=== PATIENT | male | born 1990 | race Caucasian/White ===

== ENCOUNTER 2018-07-10 17:56 | Emergency (ER) | payer BC, SELFPAY ==
[2018-07-10 18:07] VITALS: BP 122/62; PULSE 80; RESP 20; TEMP 36.6; O2SAT 100; BMI 21.9
[2018-07-10 18:35] VITALS: BP 136/74; PULSE 107; RESP 20; TEMP 37.5; O2SAT 98; BMI 21.9
--- NOTE | 2018-07-10 18:41 | CT_ITS ---
CT head/brain wo con COMPARISON: None HISTORY: Syncopal episode, headaches for a few days TECHNIQUE: Multiple axial scans obtained from the base skull to the vertex and were performed without IV contrast. FINDINGS: The base of skull is normal, mastoids are clear. There is fluid and mucoperiosteal thickening in the sphenoid sinus and mild inflammatory changes are seen in the ethmoid sinuses. The visualized portions of the maxillary sinuses are clear. The ventricular system is normal. There is a cystic lesion measuring 2.0 cm x 1.5 cm chest to the right of the ambient cistern. This is somewhat unusual location for arachnoid cyst but this is a possibility. There is no bleed and an no ischemic infarct and there are no extra-axial fluid collections. The bony calvarium appears intact. IMPRESSION: Cystic lesion at the base of the brain with MVA and cistern possibly representing an arachnoid cyst however consider follow-up nonemergent MRI scan of the brain for better evaluation., I agree the [facility] report
[2018-07-10 19:01] LABS: Basophils % 0.1 % (0.1-2.0); Eosinophils % 0.1 % (0.1-12.0); Hematocrit 46.6 % (42.0-52.0); Hemoglobin 15.5 g/dL (14.1-18.0); Lymphocytes # 0.8 K/mm3 (0.7-4.5); Mean Corpuscular HGB Conc 33.3 g/dL (31.8-35.4); Mean Corpuscular Hemoglobin 30.9 pg (27.0-31.2); Mean Corpuscular Volume 92.8 fl (80-94); Mean Platelet Volume 6.8 fl (7.4-10.4); Monocytes # 1.3 K/mm3 (0.1-1.0); Monocytes % 5.1 % (1.7-9.3); Neutrophils # 23.9 K/mm3 (1.8-7.8); Neutrophils % 91.6 % (37.0-80.0); Platelet Count 274 K/mm3 (142-424); Red Blood Count 5.03 M/mm3 (4.60-6.20); Red Cell Distribution Width 12.4 % (11.5-17.5); White Blood Count 26.1 K/mm3 (4.8-10.8)
[2018-07-10 19:05] LABS: MANUAL DIFFERENTIAL MANUAL DIFFERENTIAL (MANUAL DIFF)
[2018-07-10 19:46] LABS: Anisocytosis 1+; Lymphocytes % 3 % (10-50); Monocytes % 4 % (2-9); Neutrophils % 93 % (42-76); Platelet Estimate Normal; Stomatocytes 1+; Total Cells Counted 100
[2018-07-10 19:48] LABS: Alanine Aminotransferase 28 U/L (12-78); Albumin Level 3.9 gm/dL (3.4-5.0); Albumin/Globulin Ratio 1.2 (1.1-1.8); Alkaline Phosphatase 75 U/L (46-116); Anion Gap 13.3 mEq/L (5-15); Aspartate Amino Transferase 16 U/L (15-37); Bilirubin,Total 0.9 mg/dL (0.2-1.0); Blood Urea Nitrogen 9 mg/dL (7-18); Calcium 8.6 mg/dL (8.5-10.1); Carbon Dioxide 28 mmol/L (21.0-32.0); Chloride 101 mmol/L (98-107); Creatinine Clearance Estimated 83 mL/min (50-200); Creatinine,Serum 1.15 mg/dL (0.70-1.30); Estimated Glomerular Filt Rate 75 ml/min (>60); GFR (African American) 91 ML/MIN (>60); Globulin 3.3 gm/dl (1.3-3.2); Glucose 111 mg/dL (74-106); Potassium 3.3 mmoL/L (3.5-5.1); Sodium 139 mmol/L (136-145); Total Protein,Serum 7.2 gm/dL (6.4-8.2)
--- NOTE | 2018-07-10 20:16 | HMH.EDHA ---
ED Disposition Clinical Impression: Sinusitis Qualifiers: Sinusitis location: sphenoidal Chronicity: unspecified Qualified Code(s): J32.3 - Chronic sphenoidal sinusitis Headache Qualifiers: Headache type: unspecified Headache chronicity pattern: acute headache Intractability: not intractable Qualified Code(s): R51 - Headache Leukocytosis Qualifiers: Leukocytosis type: bandemia Qualified Code(s): D72.825 - Bandemia Disposition: Home, Self-Care Condition on Discharge: Good Instructions: DI for Sinusitis Additional Instructions: see ent and also pcp for follow up - Prescriptions: Cefdinir [Omnicef 300mg Capsule] 300 mg PO BID #20 cap Referrals: Kaylee Mcneill [Primary Care Provider] - - Critical Care Critical Care Time: No Attestation: On 07/10/18, the high probability of a clinically significant, sudden or life threatening deterioration of the following system(s) required my full and direct attention, intervention and personal management. The time I documented below is in addition to time spent performing reported procedures but includes the following listed in this critical care notation. Medical Decision Making - Medical Records Medical records reviewed: Yes: I reviewed the patient's medical records. - Dani Inquiry Pt receiving controlled substance: No Vital Signs: 07/10/18 18:07 07/10/18 18:35 Temperature 98 F 99.5 F Temperature Source Oral Oral Pulse Rate [Left Apical] 80 107 H Respiratory Rate 20 20 Blood Pressure [Right Arm] 122/62 136/74 Blood Pressure Mean [Right Arm] 82 94 Blood Pressure Source [Right Arm] Automatic Cuff Blood Pressure Position [Right Arm] Sitting 02 Sat by Pulse Oximetry 100 98 Oxygen Delivery Method Room Air - Lab Data Lab results reviewed: Yes: I reviewed the patient's lab results. Lab Results 07/10/18 18:30: WBC 26.1 H*, RBC 5.03, Hgb 15.5, Hct 46.6, MCV 92.8, MCH 30.9, MCHC 33.3, RDW 12.4, Plt Count 274, MPV 6.8 L, Neut % (Auto) 91.6 H, Lymph % (Auto) 3.0 L, Aurora % (Auto) 5.1, Eos % (Auto) 0.1, Baso % (Auto) 0.1, Neut # (Auto) 23.9 H, Lymph # (Auto) 0.8, Aurora # (Auto) 1.3 H, Eos # (Auto) 0.0, Baso # (Auto) 0.0, Total Counted 100, Neutrophils % (Manual) 93 H, Lymphocytes % (Manual) 3 L, Monocytes % (Manual) 4, Platelet Estimate Normal, Anisocytosis 1+, Stomatocytes 1+ 07/10/18 18:30: Sodium 139, Potassium 3.3 L, Chloride 101, Carbon Dioxide 28, Anion Gap 13.3, BUN 9, Creatinine 1.15, Estimated Creat Clear 83, Estimated GFR 75, Est GFR ( Amer) 91, Glucose 111 H, Calcium 8.6, Total Bilirubin 0.9, AST 16, ALT 28, Alkaline Phosphatase 75, Total Protein 7.2, Albumin 3.9, Globulin 3.3 H, Albumin/Globulin Ratio 1.2 Result diagrams: 07/10/18 18:30 07/10/18 18:30 Orders (Tests/Meds): ED MEDICATIONS Generic Name Dose Route Start Last Admin Trade Name Freq PRN Reason Stop Dose Admin Sodium Chloride 1,000 mls @ 999 mls/hr 07/10/18 18:45 07/10/18 18:58 Sod Chlor 0.9% 1000ml Bag IV 07/10/18 19:45 999 mls/hr .Q1H1M ALMITA Administration Ceftriaxone Sodium 1 gm/ 50 mls @ 100 mls/hr 07/10/18 20:30 07/10/18 20:33 Sodium Chloride IV 07/24/18 20:29 100 mls/hr Q24H ALMITA Administration Protocol Discontinued Medications Generic Name Dose Route Start Last Admin Trade Name Freq PRN Reason Stop Dose Admin Acetaminophen/Codeine Phosphate 1 joe 07/10/18 21:01 Acetaminophen W/Codeine #3 Take Home Pack (6) PO 07/10/18 21:02 ONCE ONE Diphenhydramine HCl 50 mg 07/10/18 18:41 07/10/18 18:57 Benadryl 50mg/1ml Vial IV 07/10/18 18:42 50 mg ONCE ONE Administration Ketorolac Tromethamine 30 mg 07/10/18 18:41 07/10/18 18:57 Toradol 30mg/Ml Vial IV 07/10/18 18:42 30 mg ONCE ONE Administration Methylprednisolone Sodium Succinate 125 mg 07/10/18 18:41 07/10/18 18:57 Solu-Medrol 125mg/2ml Vial IV 07/10/18 18:42 125 mg ONCE ONE Administration Metoclopramide HCl 5 mg 07/10/18 18:41 07/10/18 18:57 Seda
[2018-07-10 21:23] VITALS: BP 129/69; PULSE 100; RESP 20; TEMP 36.8; O2SAT 97
[2018-07-10 21:47] LABS: Erythrocyte Sedimentation Rate 5 mm/hr (0-15)
[2018-07-12 21:03] LABS: Peripheral Smear Review Scanned Result
== END 2018-07-10 21:24 | disposition home or self-care (01) ==
LOC: UTC 18:08 → ER 18:26
PROVIDERS: Emergency Medicine; Emergency Provider Emergency Medicine; PCP Physician Assistant
DX: J32.3 Chronic sphenoidal sinusitis (principal); R51 Headache; D72.825 Bandemia; Z88.2 Allergy status to sulfonamides; F17.210 Nicotine dependence, cigarettes, uncomplicated
CPT/HCPCS: 70450; 80053; 85007; 85025; 85651; 93005; 96365; 96367; 96375; 99283

== ENCOUNTER 2020-04-15 19:28 | Emergency (ER) | payer BC, SELFPAY ==
[2020-04-15 19:45] VITALS: BP 154/91; PULSE 93; RESP 17; TEMP 37; O2SAT 99; BMI 20.3
--- NOTE | 2020-04-15 20:04 | HMH.EDUTC ---
[facility] – [place] Disposition Clinical Impression: Viral syndrome Disposition: Home, Self-Care Condition on Discharge: Good Instructions: DI for Viral Syndrome, DI for COVID-19 (Suspected or Confirmed ), Coronavirus Disease 2019, Preventing the Spread of Coronavirus Discharge Instructions, Influenza Additional Instructions: ? Lots of rest ? Increase Fluids water, Gatorade, powerade, pedialyte,if /toddler/child ? Alternate Tylenol and / or ibuprofen as discussed for fever, aches, chills Follow up IMMEDIATELY with your family doctor for new or worsening Symptoms OR no noticeable improvement over the next 48-72 hours, 911 for difficulty or breathing ? You or your child area contagious until no fever, aches, chills for 24 hours with medication for symptoms ? Help Prevent the spread of influenza: ? Wash your hands often. Use soap and water. Wash your hands after you use the bathroom, change a child's diapers, or sneeze. Wash your hands before you prepare or eat food. Use gel hand cleanser that has 60% alcohol, when soap and water are not available. Do not touch your eyes, nose, or mouth unless you have washed your hands first. ? Cover your mouth when you sneeze or cough. Cough into a tissue or the bend of your arm. If you use a tissue, throw it away immediately and wash your hands. ? Clean shared items with a germ-killing shoe cleaner. Clean table surfaces, doorknobs, and light switches. Do not share towels, silverware, and dishes with people who are sick. Wash bed sheets, towels, silverware, and dishes with soap and water. ? Wear a mask over your mouth and nose if you are sick. The face mask may help protect others from becoming infected with the flu. Wear the mask when in common areas of your home or if you seek care with a healthcare provider. ? Stay away from others if you are sick. Stay at home until 24 hours after your fever and symptoms are gone. *Monitor Temp, Over the counter Motrin or Tylenol as directed/as needed Tylenol every 4 hours and Motrin every 6 hours (as long as your family doctor has told you that you can take it) for fever or pain. and straight to ER if unable to lower temp less than 101.0 after medication given *Warm salt water gargles may help to soothe the throat *Throat Lozenges *Warm fluids like tea with honey may help to soothe the throat *Sleep elevated *Humidifier/Vaporizer Follow up IMMEDIATELY for new or worsening symptoms or no Noticeable improvement over the next 48-72 hours. 911 for difficulty breathing or swallowing May need to get retested for COVID in 3-5 days if having symptoms Return if needed Straight to ER if any life threatening symptoms Make sure to Quarantine if you are having COVID symptoms as advised in the [facility] Referrals: Kaylee Mcneill [Primary Care Provider] - As needed Forms: Work/School Release Time of Disposition: 20:28 Medical Decision Making - Dani Inquiry Pt receiving controlled substance: No Dani was queried for this patient: No Vital Signs: 04/15/20 19:45 Temperature 98.6 F Temperature Source Oral Pulse Rate [Right] 93 H Respiratory Rate 17 Blood Pressure [Right Arm] 154/91 H Blood Pressure Mean [Right Arm] 112 Blood Pressure Source [Right Arm] Automatic Cuff Blood Pressure Position [Right Arm] Sitting 02 Sat by Pulse Oximetry 99 Oxygen Delivery Method Room Air Medical Decision Narrative: Discussed with patient that COVID test results just came back today and was negative and he recently was dx with flu and today loss his sense of taste and smell, Advised patient that we could test him again today but still may be early or could have him quarantine and recommended retest in the nest 3-5 days or sooner if any worsening of symptoms and patient agreed. Patient educated on COVID 19 that it is a virus and at this time there is no current prevention medications except vaccine Patient verbalized understanding Patient educated to make sure that he is quarantining and needed to get retested
[2020-04-15 20:29] VITALS: BP 148/87; PULSE 90; RESP 16; TEMP 36.6
== END 2020-04-15 20:32 | disposition home or self-care (01) ==
PROVIDERS: Emergency Provider Nurse Practitioner; PCP Physician Assistant
DX: J10.1 Influenza due to other identified influenza virus with other respiratory manifestations (principal); F17.210 Nicotine dependence, cigarettes, uncomplicated; Z88.2 Allergy status to sulfonamides
CPT/HCPCS: 99202; G0463

== ENCOUNTER → 2020-11-04 17:17 | Outpatient (CLI) | payer BC, SELFPAY | PROVIDERS: PCP Family Medicine; Visit Provider Nurse Practitioner | DX: Z20.822 Contact with and (suspected) exposure to COVID-19 (principal); U07.1 COVID-19 | CPT/HCPCS: C9803; U0003; U0005 ==

== ENCOUNTER 2020-11-07 00:19 | Emergency (ER) | payer BC, SELFPAY ==
[2020-11-07] VITALS (8 sets, daily range): BP systolic 108–131; BP diastolic 58–90; PULSE 62–95; RESP 16–18; TEMP 36.8; O2SAT 97–100; BMI 22.6
--- NOTE | 2020-11-07 00:28 | CT_ITS ---
PROCEDURE INFORMATION: Exam: CT Abdomen And Pelvis With Contrast Exam date and time: 11/07/2020 12:28 AM Age: 30 years old Clinical indication: Nausea and vomiting; Abdominal pain; Generalized; Patient HX: N/v/d TECHNIQUE: Imaging protocol: Computed tomography of the abdomen and pelvis with contrast. Radiation optimization: All CT scans at this facility use at least one of these dose optimization techniques: automated exposure control; mA and/or kV adjustment per patient size (includes targeted exams where dose is matched to clinical indication); or iterative reconstruction. Contrast material: ISOVUE; Contrast volume: 75 ml; Contrast route: IV; COMPARISON: CR PELAP PELVIS AP ONLY 04/04/2014 10:04 PM FINDINGS: Lungs: No mass/infiltrate at either lung base. No pleural effusion. Liver: The liver is normal in size and attenuation. No intrahapatic biliary dilitation. Gallbladder and bile ducts: Normal. No calcified stones. No ductal dilation. Gallbladder wall thickness is normal. Pancreas: Normal. No ductal dilation. Spleen: Normal. No splenomegaly. Adrenal glands: Normal. No mass. Kidneys and ureters: Normal. No hydronephrosis. Stomach and bowel: There is fluid and air distention of the colon. The small bowel does not appear dilated. There is prominent distention of the stomach with air, fluid, and food. No obstruction. No mucosal thickening. Small bowel mesentery is normal. Appendix: Unremarkable. Intraperitoneal space: Unremarkable. No free air. No significant fluid collection. Vasculature: Unremarkable. No abdominal aortic aneurysm. Lymph nodes: Unremarkable. No enlarged lymph nodes. Urinary bladder: Unremarkable as visualized. Reproductive: Unremarkable as visualized. Bones/joints: Unremarkable. No acute fracture. Soft tissues: Unremarkable. IMPRESSION: Non-specific mild distention of the colon with fluid and air. No evidence of intestinal obstruction. There is no evidence of mass within the abdomen or pelvis.
--- NOTE | 2020-11-07 00:53 | HMH.EDNVD ---
ED Disposition Clinical Impression: COVID-19, Enteritis Disposition: Home, Self-Care Condition on Discharge: Good Instructions: DI for Diarrhea and Traveler's Diarrhea -- Adult, DI for COVID-19 (Suspected or Confirmed ) Additional Instructions: fluids and see pcp for follow up and stool results Referrals: Kiel Lundberg MD [Primary Care Provider] - - Critical Care Critical Care Time: No Attestation: On 11/07/20, the high probability of a clinically significant, sudden or life threatening deterioration of the following system(s) required my full and direct attention, intervention and personal management. The time I documented below is in addition to time spent performing reported procedures but includes the following listed in this critical care notation. Medical Decision Making - Medical Records Medical records reviewed: Yes: I reviewed the patient's medical records. - Dani Inquiry Pt receiving controlled substance: No Vital Signs: 11/07/20 00:21 11/07/20 00:30 11/07/20 01:00 Temperature 98.3 F Temperature Source Oral Pulse Rate 89 72 Pulse Rate [Right Brachial] 95 H Respiratory Rate 18 17 Blood Pressure 131/90 126/83 Blood Pressure [Right Arm] 130/89 Blood Pressure Mean 101 Blood Pressure Mean [Right Arm] 102 Blood Pressure Source [Right Arm] Automatic Cuff Blood Pressure Position [Right Arm] Sitting 02 Sat by Pulse Oximetry 97 98 99 Oxygen Delivery Method Room Air Room Air 11/07/20 02:00 11/07/20 03:00 11/07/20 03:43 Temperature Temperature Source Pulse Rate 76 74 81 Pulse Rate [Right Brachial] Respiratory Rate Blood Pressure 108/60 L 113/58 L 108/58 L Blood Pressure [Right Arm] Blood Pressure Mean Blood Pressure Mean [Right Arm] Blood Pressure Source [Right Arm] Blood Pressure Position [Right Arm] 02 Sat by Pulse Oximetry 99 100 98 Oxygen Delivery Method 11/07/20 04:00 Temperature Temperature Source Pulse Rate 62 Pulse Rate [Right Brachial] Respiratory Rate Blood Pressure 110/60 Blood Pressure [Right Arm] Blood Pressure Mean Blood Pressure Mean [Right Arm] Blood Pressure Source [Right Arm] Blood Pressure Position [Right Arm] 02 Sat by Pulse Oximetry 99 Oxygen Delivery Method - Lab Data Lab results reviewed: Yes: I reviewed the patient's lab results. Lab Results 11/07/20 00:45: WBC 12.8 H, RBC 5.46, Hgb 17.3, Hct 55.2 H, MCV 101.1 H, MCH 31.6 H, MCHC 31.3 L, RDW 12.8, Plt Count 323, MPV 8.4, Neut % (Auto) 86.2 H, Lymph % (Auto) 8.6 L, Cobb % (Auto) 4.1, Eos % (Auto) 0.5, Baso % (Auto) 0.6, Neut # (Auto) 11.1 H, Lymph # (Auto) 1.1, Cobb # (Auto) 0.5, Eos # (Auto) 0.1, Baso # (Auto) 0.1, Total Counted 100, Neutrophils % (Manual) 85 H, Lymphocytes % (Manual) 13, Monocytes % (Manual) 1 L, Eosinophils % (Manual) 1, Platelet Estimate Normal, Macrocytosis 1+ 11/07/20 00:45: Sodium 140, Potassium 4.1, Chloride 105, Carbon Dioxide 20 L, Anion Gap 19.1 H, BUN 16, Creatinine 1.00, Estimated Creat Clear 96, Estimated GFR 87, Est GFR ( Amer) 105, Glucose 111 H, Calcium 9.3, Total Bilirubin 0.3, AST 46, ALT 34, Alkaline Phosphatase 82, Total Protein 8.3 H, Albumin 5.0, Globulin 3.3 H, Albumin/Globulin Ratio 1.5, Amylase 62, Lipase 27 11/07/20 00:45: ESR 3 11/07/20 00:45: C-Reactive Protein 14.8 H, Procalcitonin 0.063 Result diagrams: 11/07/20 00:45 11/07/20 00:45 Orders (Tests/Meds): ED MEDICATIONS Generic Name Dose Route Start Last Admin Trade Name Freq PRN Reason Stop Dose Admin Sodium Chloride 1,000 mls @ 999 mls/hr 11/07/20 00:30 11/07/20 00:39 Sod Chlor 0.9% 1000ml Bag IV 11/07/20 01:30 999 mls/hr .Q1H1M ALMITA Administration Sodium Chloride 8 ml 11/07/20 03:45 Sodium Chloride 0.9% 10ml Vial IV 12/07/20 03:44 NEEDED PRN dilute pepcid Discontinued Medications Generic Name Dose Route Start Last Admin Trade Name Freq PRN Reason Stop Dose Admin Dexamethasone Sodium Phosphate
[2020-11-07 00:55] LABS: Basophils # 0.1 K/mm3 (0-0.2); Basophils % 0.6 % (0.1-2.0); Eosinophils # 0.1 K/mm3 (0.0-0.4); Eosinophils % 0.5 % (0.1-12.0); Hematocrit 55.2 % (42.0-52.0); Hemoglobin 17.3 g/dL (14.1-18.0); Lymphocytes # 1.1 K/mm3 (0.7-4.5); Lymphocytes % 8.6 % (10-50); Mean Corpuscular HGB Conc 31.3 g/dL (31.8-35.4); Mean Corpuscular Hemoglobin 31.6 pg (27.0-31.2); Mean Corpuscular Volume 101.1 fl (80-94); Mean Platelet Volume 8.4 fl (7.4-10.4); Monocytes # 0.5 K/mm3 (0.1-1.0); Monocytes % 4.1 % (1.7-9.3); Neutrophils # 11.1 K/mm3 (1.8-7.8); Neutrophils % 86.2 % (37.0-80.0); Platelet Count 323 K/mm3 (142-424); Red Blood Count 5.46 M/mm3 (4.60-6.20); Red Cell Distribution Width 12.8 % (11.5-17.5); White Blood Count 12.8 K/mm3 (4.8-10.8)
[2020-11-07 00:57] LABS: MANUAL DIFFERENTIAL MANUAL DIFFERENTIAL (MANUAL DIFF)
[2020-11-07 00:59] LABS: Chloride 105 mmol/L (98-107); Potassium 4.1 mmoL/L (3.5-5.1); Sodium 140 mmol/L (136-145)
[2020-11-07 01:01] LABS: Amylase 62 U/L (30-110)
[2020-11-07 01:02] LABS: Alanine Aminotransferase 34 U/L (12-78); Albumin/Globulin Ratio 1.5 (1.1-1.8); Alkaline Phosphatase 82 U/L (38-126); Anion Gap 19.1 mEq/L (5-15); Aspartate Amino Transferase 46 U/L (17-59); Bilirubin,Total 0.3 mg/dl (0.2-1.3); Blood Urea Nitrogen 16 mg/dl (9-20); Calcium 9.3 mg/dl (8.4-10.2); Carbon Dioxide 20 mmol/L (22.0-30.0); Creatinine Clearance Estimated 96 mL/min (50-200); Estimated Glomerular Filt Rate 87 ml/min (>60); GFR (African American) 105 ML/MIN (>60); Globulin 3.3 g/dL (1.3-3.2); Glucose 111 mg/dl (74-100); Lipase 27 U/L (23-300); Total Protein,Serum 8.3 g/dl (6.3-8.2)
--- NOTE | 2020-11-07 01:03 | XR_ITS ---
PROCEDURE INFORMATION: Exam: XR Chest Exam date and time: 11/07/2020 1:03 AM Age: 30 years old Clinical indication: Shortness of breath; Additional info: Covid+ TECHNIQUE: Imaging protocol: XR of the chest. Views: 2 views. COMPARISON: CR XR CHEST 2V 04/08/2019 1:51 PM FINDINGS: Lungs: Unremarkable. No consolidation. There is a 6 mm calcified granuloma within the right upper lobe. Pleural spaces: Unremarkable. No pleural effusion. No pneumothorax. Heart/Mediastinum: Unremarkable. No cardiomegaly. There is a single 4 mm calcified lymph node within the right hilus. Bones/joints: Unremarkable. IMPRESSION: Again, there is a healed primary complex identified within the right lung and right hilus as on prior examination of 04/08/2019. No evidence of acute infiltrate or congestive failure.
[2020-11-07 01:25] LABS: C-Reactive Protein 14.8 mg/L (0-4)
[2020-11-07 01:31] LABS: Erythrocyte Sedimentation Rate 3 mm/hr (0-15)
[2020-11-07 01:39] LABS: Procalcitonin 0.063 ng/mL (0.0-2.0)
[2020-11-07 01:53] LABS: Eosinophils % 1 % (0-3); Lymphocytes % 13 % (10-50); Macrocytosis 1+; Monocytes % 1 % (2-9); Neutrophils % 85 % (42-76); Platelet Estimate Normal; Total Cells Counted 100
--- NOTE | 2020-11-07 02:49 | PC.NURSE ---
pt's called and pt gave permission to give updates. updated her on POC.
--- NOTE | 2020-11-07 03:45 | PC.NURSE ---
Pt gave diarrhea sample. , ok'ed to have PO intake. Pt given rené mist
[2020-11-07 04:20] LABS: Adenovirus F 40/41, stool Not Detected (NotDetected); Astrovirus Not Detected (NotDetected); Campylobacter Not Detected (NotDetected); Clostridium Difficile A/B, PCR Not Detected (NotDetected); Cyclospora Cayetanesis Not Detected (NotDetected); Entamoeba histolytica Not Detected (NotDetected); Enteroaggregative E coli Not Detected (NotDetected); Enterotoxigenic E coli Not Detected (NotDetected); Giardia lamblia Not Detected (NotDetected); Microscopic, Urine URINE MICROSCOPIC (MICROSCOPIC); Norovirus Not Detected (NotDetected); Plesimonas Shigalloides, PCR Not Detected (NotDetected); Rotavirus A Not Detected (NotDetected); Salmonella, PCR Not Detected (NotDetected); Sapovirus Not Detected (NotDetected); Shiga-like toxin E coli Not Detected (NotDetected); Shigella Enterovasive E coli Not Detected (NotDetected); Vibrio Cholerae Not Detected (NotDetected); Vibrio, PCR Not Detected (NotDetected); Yersinia Entercolitica, PCR Not Detected (NotDetected)
[2020-11-07 04:22] LABS: Appearance,Urine CLEAR (Clear); Bilirubin,Urine Negative (Negative); Blood, Urine Negative (Negative); Color,Urine YELLOW (Yellow); Glucose,Urine (UA) Negative (Negative); Ketones,Urine 1+ (Negative); Leukocyte Esterase,Urine Negative (Negative); Nitrate,Urine Negative (Negative); PH,Urine 5.5 (5.0-8.5); Protein,Urine Negative (Negative); Specific Gravity, Urine 1.015 (1.005-1.030); Urobilinogen,Urine 0.2 EU/dl (0.2)
[2020-11-07 04:28] LABS: WBC,Urine Occasional #/hpf (0-3)
[2020-11-07 04:29] LABS: Bacteria,Urine 1+ /lpf; Mucus,Urine 1+ /lpf
[2020-11-07 07:32] LABS: Cryptosporidium Detected (NotDetected); Enteropathogenic E coli Detected (NotDetected)
--- NOTE | 2020-11-07 07:33 | PC.NURSE ---
lab called with diarrhea panel results at this time spoke with Joana, states pt is positive enteropathogenic ecoli and crypto. Notified Dr. Burch of results-he is who seen pt in ER.
== END 2020-11-07 04:42 | disposition home or self-care (01) ==
PROVIDERS: Emergency Provider Emergency Medicine; PCP Family Medicine
DX: U07.1 COVID-19 (principal); K52.9 Noninfective gastroenteritis and colitis, unspecified; F17.210 Nicotine dependence, cigarettes, uncomplicated
CPT/HCPCS: 71046; 74177; 80053; 81001; 82150; 83690; 84145; 85007; 85025; 85651; 86140; 87507; 96365; 96375; 99283; J2405; Q9967

== ENCOUNTER 2023-03-27 10:20 | Emergency (ER) | payer SELFPAY ==
[2023-03-27 11:30] VITALS: BP 120/80; PULSE 93; RESP 18; TEMP 37.4; O2SAT 100; BMI 21.9
--- NOTE | 2023-03-27 11:50 | EXP.UTC ---
Discharge Plan Disposition Patient Disposition: Home, Self-Care Condition: Good Prescriptions Prescriptions: New azithromycin [Zithromax] 250 mg tablet 250 mg PO UD DOSE PK Qty: 6 0RF Rx Instructions: Take two (2) tablets today, then one (1) tablet days #2 thru #5 methylprednisolone 4 mg Tablets,Dose Pack 4 mg PO DIRECTED 6 Days Qty: 21 0RF Rx Instructions: Take 1 pack as directed for 6 days No Action Men's Multivitamin Gummies 200 mcg tablet,chewable PO Referrals Follow up/Referrals: Genevieve Pierce [Primary Care Provider] - See instructions Activity Restrictions/Add. Instructions Additional Instructions/Restrictions: Drink plenty of fluids. Make sure you start drinking. Water or an electrolyte fluid like gatorade or pedialyte would be best. Take tylenol for pain or fever. Take the medications as directed. Follow up with your regular doctor. GO TO THE ER FOR ANY WORSENING SYMPTOMS Clinical Impressions Clinical Impression: Influenza Instructions Patient Instructions: DI for Influenza -- Adult, Methylprednisolone, Azithromycin Discharge ED Provider: Torrey Vigil [facility] General Stated complaint: lower back pain strong urine ba Mode of Arrival: Ambulatory Source of Information: Patient Limitations: No Limitations Time Seen by Provider: 03/27/23 11:50 Description of Symptoms (Recalled from Triage Doc. by RN): Pt's is having bilateral lower back pain, bilateral knee pain, cough, and dark urine. HEENT Symptoms (Recalled from RN notes): Yes Resp Symptoms (Recalled from RN notes): No Skin Symptoms (Recalled from RN notes): No MS Symptoms (Recalled from RN notes): No Functional Status (Recalled from RN notes): n/a History of Present Illness Provider Complaint: He states that for the past 2 days he has had sore throat, body aches, cough and malaise. He states that he has been exposed to influenza. He states that he has had decreased urine output since this morning. He states that he has not been drinking enough fluids because he has not felt like getting up and getting them to drink. Related Data Home Medications Medication Instructions Recorded Confirmed multivitamin with minerals-folic tab PO 01/19/21 01/19/21 acid 200 mcg chewable tablet (Men's Multivitamin Gummies) Previous Rx's Medication Instructions Recorded azithromycin 250 mg tablet 250 mg PO UD DOSE PK #6 tabs 03/27/23 (Zithromax) methylprednisolone 4 mg tablets in 4 mg PO DIRECTED 6 days #21 tabs 03/27/23 a dose pack Allergies Allergy/AdvReac Type Severity Reaction Status Date / Time Sulfa (Sulfonamide Allergy Verified 03/27/23 11:47 Antibiotics) Worker's Comp Is this a Worker's Comp case?: No PFSH PFS Disclaimer: The information contained in this section may have been updated after the patient was seen, as this information can be updated by other users. Medical History (Updated 03/27/23 @ 12:07 by Torrey Vigil APRN) ALISSA (obstructive sleep apnea) Snoring Syncope Witnessed apneic spells Social History Smoking Status: Current every day smoker tobacco type: cigarettes packs per day: 1 alcohol intake: never substance use type: denies use current occupational status: employed Travel in the last 8 weeks: Inside the [place] housing: house ROS Obtained: Yes All systems reviewed & no additional complaints except as documented Constitutional Constitutional: Reports poor appetite Eyes Eyes: Reports system reviewed and no additional complaints, except as documented ENT Ears, Nose, Mouth, and Throat: Reports as per HPI Cardiovascular Cardiovascular: Reports system reviewed and no additional complaints, except as documented and Denies chest pain Respiratory Respiratory: Denies shortness of breath, Denies chest congestion, Reports cough, Denies stridor and Denies wheezing Gastrointestinal Gastrointestingal: Reports system reviewed and no additional complaints, except as documented; Denies abdominal pain, diarrhea or vomiting Musculoskeletal Musculoskeletal: Reports system reviewed and no additional complaints, except as documented and Denies arthralgias Integumentary/Breasts Skin/Breast: Reports system reviewed and no additional complaints, except as documented and Denies rash Neurologic Neurologic: Denies paresthesias Allergic/Immunologic Allergic/Immunologic: Denies wheezing Physical Exam General General appearance: alert and in no apparent distress Head Head exam: atraumatic, normocephalic and normal inspection Eye Eye exam: Present normal appearance, PERRL and EOMI ENT ENT exam: Present mucous membranes moist and normal external ear exam Expanded ENT Exam TM/Canal exam: Bilateral TM: erythema and bulging Nose exam: Absent sinus tenderness Mouth exam: Present normal external inspection; Absent drooling Teeth exam: Present normal inspection Throat exam: Present tonsillar erythema, tonsillomegaly and tonsillar exudate Neck Neck exam: Present normal inspection, full ROM and trachea midline; Absent tenderness, meningismus or lymphadenopathy Chest Chest inspection: Present normal inspection and symmetric chest wall rise; Absent tenderness Respiratory Respiratory exam: Present normal lung sounds bilaterally; Absent respiratory distress, wheezes or stridor Cardiovascular Cardiovascular exam: Present regular rate and normal rhythm; Absent systolic murmur or diastolic murmur Abdominal Exam Abdominal exam: Present soft and normal bowel sounds; Absent distention, tenderness, guarding, rebound or rigidity Extremities Exam Extremities exam: Present normal inspection and normal capillary refill; Absent calf tenderness Back Exam Back exam: Present normal inspection and full ROM; Absent tenderness, CVA tenderness (R) or CVA tenderness (L) Neurological Exam Neurological exam: Present alert, oriented X3 and CN II-XII intact Psychiatric Psychiatric exam: Present normal affect and normal mood Skin Skin exam: Present warm, dry, intact and normal color Medical Decision Making Medical Records Medical records reviewed: No I reviewed the patient's medical records. Dani Inquiry Pt receiving controlled substance: No Vital Signs: 03/27/23 11:30 Temperature 99.4 F Temperature Source Oral Pulse Rate [Right Radial] 93 H Respiratory Rate 18 Blood Pressure [Right Arm] 120/80 Blood Pressure Mean [Right Arm] 93 Blood Pressure Source [Right Arm] Automatic Cuff Blood Pressure Position [Right Arm] Sitting 02 Sat by Pulse Oximetry 100 Oxygen Delivery Method Room Air Medical Decision Narrative: He refused IV bolus fluids and lab work due to his insurance not being active. He was instructed to return jorge if he does not start feeling better after drinking plenty of fluids.
[2023-03-27 12:26] VITALS: BP 120/80; PULSE 93; RESP 18; TEMP 37.4; O2SAT 100
== END 2023-03-27 12:26 | disposition home or self-care (01) ==
PROVIDERS: Emergency Provider Nurse Practitioner Family; PCP Nurse Practitioner Family
DX: J10.1 Influenza due to other identified influenza virus with other respiratory manifestations (principal); R05.9 Cough, unspecified; R07.0 Pain in throat; R53.81 Other malaise; F17.210 Nicotine dependence, cigarettes, uncomplicated
CPT/HCPCS: 99212; 99214; G0463

== ENCOUNTER 2023-04-24 10:40 | Emergency (ER) | payer OTHER, SELFPAY ==
[2023-04-24 10:42] VITALS: BP 129/76; PULSE 90; RESP 18; TEMP 36.6; O2SAT 99; BMI 19.8
--- NOTE | 2023-04-24 11:04 | ED_ITS ---
Discharge Plan Disposition Patient Disposition: Home, Self-Care Condition: Good Prescriptions Prescriptions: New prednisone 10 mg tablet 10 mg PO DIRECTED 9 Days Qty: 21 0RF Rx Instructions: Take 4 tablets daily for 3 days, then take 2 tablets daily for 3 days, then take 1 tablet daily for 3 days, then stop. benzonatate 100 mg capsule 100 mg PO TIDP PRN (Reason: Cough) Qty: 30 0RF cefdinir 300 mg capsule 300 mg PO BID Qty: 20 0RF No Action Men's Multivitamin Gummies 200 mcg tablet,chewable 1 tab PO DAILY Referrals Follow up/Referrals: Genevieve Pierce [Primary Care Provider] - See instructions Activity Restrictions/Add. Instructions Additional Instructions/Restrictions: Drink plenty of fluids. Take tylenol or ibuprofen for pain or fever. Take the medications as directed. Follow up with your regular doctor. GO TO THE ER FOR ANY WORSENING SYMPTOMS Clinical Impressions Clinical Impression: Acute bronchitis Instructions Patient Instructions: Acute Bronchitis, DI for Acute Bronchitis Discharge ED Provider: Torrey Vigil [facility] General Stated complaint: congestion cough side pain Time Seen by Provider: 04/24/23 11:04 Related Data Home Medications Medication Instructions Recorded Confirmed multivitamin with minerals-folic 1 tab PO DAILY 01/19/21 04/24/23 acid 200 mcg chewable tablet (Men's Multivitamin Gummies) Previous Rx's Medication Instructions Recorded benzonatate 100 mg capsule 100 mg PO TIDP PRN Cough #30 caps 04/24/23 cefdinir 300 mg capsule 300 mg PO BID #20 caps 04/24/23 prednisone 10 mg tablet 10 mg PO DIRECTED 9 days #21 04/24/23 tabs Allergies Allergy/AdvReac Type Severity Reaction Status Date / Time Sulfa (Sulfonamide Allergy Verified 04/24/23 11:20 Antibiotics) [facility] Disclaimer: The information contained in this section may have been updated after the p atient was seen, as this information can be updated by other users. Medical History (Updated 04/24/23 @ 12:02 by Torrey Vigil APRN) Witnessed apneic spells Snoring ALISSA (obstructive sleep apnea) Syncope Social History Smoking Status: Current every day smoker tobacco type: cigarettes packs per day: 1 alcohol intake: never substance use type: denies use current occupational status: employed Travel in the last 8 weeks: Inside the [place] housing: house ROS Obtained: Yes All systems reviewed & no additional complaints except as documented Constitutional Constitutional: Reports poor appetite Eyes Eyes: Reports system reviewed and no additional complaints, except as documented ENT Ears, Nose, Mouth, and Throat: Reports as per HPI Cardiovascular Cardiovascular: Reports system reviewed and no additional complaints, except as documented and Denies chest pain Respiratory Respiratory: Denies shortness of breath, Reports chest congestion, Reports cough, Denies stridor and Denies wheezing Gastrointestinal Gastrointestingal: Reports system reviewed and no additional complaints, except as documented; Denies abdominal pain, diarrhea or vomiting Musculoskeletal Musculoskeletal: Reports system reviewed and no additional complaints, except as documented and Denies arthralgias Integumentary/Breasts Skin/Breast: Reports system reviewed and no additional complaints, except as documented and Denies rash Neurologic Neurologic: Denies paresthesias Allergic/Immunologic Allergic/Immunologic: Denies wheezing Physical Exam General General appearance: alert and in no apparent distress Eye Eye exam: Present normal appearance, PERRL and EOMI ENT ENT exam: Present mucous membranes moist and normal external ear exam Expanded ENT Exam External ear exam: Present normal external inspection TM/Canal exam: Bilateral TM: erythema and bulging Nose exam: Absent sinus tenderness Nasal speculum exam: Bilateral: normal Mouth exam: Present normal external inspection; Absent drooling Teeth exam: Present normal inspection Throat exam: Present tonsillar erythema and tonsillomegaly Neck Neck exam: Present normal inspection, full ROM and trachea midline; Absent tenderness, lymphadenopathy or thyromegaly Chest Chest inspection: Present normal inspection and symmetric chest wall rise; Absent tenderness or rash Respiratory Respiratory exam: Present normal lung sounds bilaterally; Absent respiratory distress, wheezes, stridor or accessory muscle use Cardiovascular Cardiovascular exam: Present regular rate, normal rhythm and normal heart sounds Abdominal Exam Abdominal exam: Present soft; Absent distention, tenderness, guarding, rebound or rigidity Extremities Exam Extremities exam: Present normal inspection, full ROM and normal capillary refill; Absent tenderness or calf tenderness Back Exam Back exam: Present normal inspection and full ROM; Absent tenderness Neurological Exam Neurological exam: Present alert and oriented X3 Psychiatric Psychiatric exam: Present normal affect and normal mood Skin Skin exam: Present warm, dry, intact and normal color Lymphatic Lymphatic Findings: no adenopathy Medical Decision Making Medical Records Medical records reviewed: No I reviewed the patient's medical records. Dani Inquiry Pt receiving controlled substance: No Lab Data Lab results reviewed: Yes I reviewed the patient's lab results.
--- NOTE | 2023-04-24 11:11 | XR_ITS ---
PROCEDURE INFORMATION: Exam: XR Chest Exam date and time: 04/24/2023 11:25 AM Age: 32 years old Clinical indication: Cough TECHNIQUE: Imaging protocol: Radiologic exam of the chest. Views: 2 views. COMPARISON: CR XR CHEST 2V 11/07/2020 2:13 AM FINDINGS: Lungs: No evidence of pneumonia or interstitial edema. Right upper lobe granuloma noted. Pleural spaces: Unremarkable. No pleural effusion. No pneumothorax. Heart/Mediastinum: Unremarkable. No cardiomegaly. Bones/joints: Unremarkable. IMPRESSION: No evidence of pneumonia or interstitial edema.
[2023-04-24 12:16] LABS: Coronavirus 19, PCR Not Detected (NotDetected); Influenza A, PCR Not Detected (NotDetected); Influenza B, PCR Not Detected (NotDetected)
[2023-04-24] MEDS: DEXAMETHASONE 4MG/ML 1ML VIAL 8 MG IM (12:19)
[2023-04-24] MEDS: cefTRIAXone 1GM VIAL 1 GM IM (12:19)
[2023-04-24] MEDS: LIDOCAINE 1% 5ML PF VIAL IM (12:19)
[2023-04-24 12:36] VITALS: BP 129/76; PULSE 90; RESP 18; TEMP 36.6; O2SAT 99
== END 2023-04-24 12:36 | disposition home or self-care (01) ==
PROVIDERS: Emergency Provider Nurse Practitioner Family; PCP Nurse Practitioner Family
DX: J20.9 Acute bronchitis, unspecified (principal); R05.9 Cough, unspecified; R09.81 Nasal congestion; G47.33 Obstructive sleep apnea (adult) (pediatric); F17.210 Nicotine dependence, cigarettes, uncomplicated
CPT/HCPCS: 71046; 87636; 96372; 99212; 99214; G0463; J0696

== ENCOUNTER 2023-06-29 09:44 | Emergency (ER) | payer OTHER, SELFPAY ==
[2023-06-29 10:00] VITALS: BP 114/69; PULSE 71; RESP 20; TEMP 36.8; O2SAT 100; BMI 19.8
--- NOTE | 2023-06-29 10:17 | ED_ITS ---
Discharge Plan Disposition Patient Disposition: Home, Self-Care Condition: Good Prescriptions Prescriptions: New amoxicillin 500 mg capsule 500 mg PO BID 10 Days Qty: 20 0RF Referrals Follow up/Referrals: Genevieve Pierce [Primary Care Provider] - See instructions Activity Restrictions/Add. Instructions Additional Instructions/Restrictions: *Monitor Temp, Over the counter Motrin or Tylenol as directed/as needed Tylenol every 4 hours and Motrin every 6 hours (as long as your family doctor has told you that you can take it) for fever or pain. and straight to ER if unable to lower temp less than 101.0 after medication given *Warm salt water gargles may help to soothe the throat *Throat Lozenges? *Warm fluids like tea with honey may help to soothe the throat? *Sleep elevated *Humidifier/Vaporizer *If you did not take Penicillin shot or was unable to, start taking antibiotic immediately and make sure that you take it for the FULL length of time although you should start to feel better in 24-48 hours *change toothbrush and toothpaste 24-48 hours after starting to take antibiotics so you do not reinfect yourself Monitor Temp. Tylenol and/or Ibuprofen as needed. ER if fever is no less than 101 despite alternating Tylenol and Ibuprofen * Encourage fluids, water, Gatorade, powerade, pedialyte if infant/toddler/or child *Cold fluids, popsicles and ice cream may feel good on his throat Follow up IMMEDIATELY for new or worsening symptoms or no Noticeable improvement over the next 48-72 hours. 911 for difficulty breathing or swallowing Clinical Impressions Clinical Impression: Strep throat Instructions Patient Instructions: DI for Strep Throat, Strep Throat Discharge ED Provider: Apolonia Garnett [facility] [place] HPI General Stated complaint: sore throat runny nose Mode of Arrival: Ambulatory Source of Information: Patient Limitations: No Limitations Time Seen by Provider: 06/29/23 10:17 Description of Symptoms (Recalled from Triage Doc. by RN): PATIENT C/O SORE THROAT X 2 WEEKS HEENT Symptoms (Recalled from RN notes): Yes Resp Symptoms (Recalled from RN notes): No Skin Symptoms (Recalled from RN notes): No MS Symptoms (Recalled from RN notes): No Functional Status (Recalled from RN notes): WNL History of Present Illness Provider Complaint: Patient states that he has been having sore throat for about 2 weeks and now having fever and nasal congestion so today he came in to get checked Related Data Previous Rx's Medication Instructions Recorded amoxicillin 500 mg capsule 500 mg PO BID 10 days #20 caps 06/29/23 Allergies Allergy/AdvReac Type Severity Reaction Status Date / Time Sulfa (Sulfonamide Allergy Verified 04/24/23 11:20 Antibiotics) Worker's Comp Is this a Worker's Comp case?: No [facility] Disclaimer: The information contained in this section may have been updated after the patient was seen, as this information can be updated by other users. Medical History (Updated 06/29/23 @ 10:22 by Apolonia Garnett APRN) Witnessed apneic spells Snoring ALISSA (obstructive sleep apnea) Syncope Social History Smoking Status: Current every day smoker tobacco type: cigarettes packs per day : 1 alcohol intake: never substance use type: denies use current occupational status: employed Travel in the last 8 weeks: Inside the [place] housing: house ROS Obtained: Yes All systems reviewed & no additional complaints except as documented and Yes Systems reviewed as appropriate & no additional complaints except as documented Constitutional Constitutional: Reports system reviewed and no additional complaints, except as documented, Reports as per HPI and Reports headache(s) ENT Ears, Nose, Mouth, and Throat: Reports system reviewed and no additional complaints, except as documented, Reports as per HPI, Reports headache(s), Reports nasal discharge and Reports sore throat Cardiovascular Cardiovascular: Reports system reviewed and no additional complaints, except as documented and Reports as per HPI Respiratory Respiratory: Reports system reviewed and no additional complaints, except as documented and Reports as per HPI Gastrointestinal Gastrointestingal: Reports system reviewed and no additional complaints, except as documented and as per HPI Neurologic Neurologic: Reports headache(s) Physical Exam General General appearance: alert and in no apparent distress ENT ENT exam: Present mucous membranes moist Expanded ENT Exam Throat exam: Present tonsillar erythema Respiratory Respiratory exam: Present normal lung sounds bilaterally; Absent respiratory distress or wheezes Cardiovascular Cardiovascular exam: Present regular rate, normal rhythm and normal heart sounds Neurological Exam Neurological exam: Present alert, oriented X3 and normal gait Medical Decision Making Dani Inquiry Pt receiving controlled substance: No Dani was queried for this patient: No Vital Signs: 06/29/23 10:00 Temperature 98.3 F Temperature Source Oral Pulse Rate [Left Brachial] 71 Respiratory Rate 20 Blood Pressure [Left Arm] 114/69 Blood Pressure Mean [Left Arm] 84 Blood Pressure Source [Left Arm] Automatic Cuff Blood Pressure Position [Left Arm] Sitting 02 Sat by Pulse Oximetry 100 Oxygen Delivery Method Room Air Lab Data Lab results reviewed: Yes I reviewed the patient's lab results.
[2023-06-29 10:19] LABS: UTC Strep Screen (Rapid) Positive (Negative)
[2023-06-29 10:47] VITALS: BP 114/69; PULSE 71; RESP 20; TEMP 36.8; O2SAT 100
== END 2023-06-29 10:50 | disposition home or self-care (01) ==
PROVIDERS: Emergency Provider Nurse Practitioner; PCP Nurse Practitioner Family
DX: J02.0 Streptococcal pharyngitis (principal); R07.0 Pain in throat; R50.9 Fever, unspecified; R09.81 Nasal congestion; F17.210 Nicotine dependence, cigarettes, uncomplicated
CPT/HCPCS: 87880; 99212; 99214; G0463

== ENCOUNTER 2024-01-04 16:10 | Emergency (ER) | payer OTHER, SELFPAY ==
[2024-01-04 16:20] VITALS: BP 112/64; PULSE 70; RESP 21; TEMP 36.7; O2SAT 99; BMI 22.5
--- NOTE | 2024-01-04 16:26 | XR_ITS ---
PROCEDURE INFORMATION: Exam: XR Chest Exam date and time: 01/04/2024 4:41 PM Age: 33 years old Clinical indication: Shortness of breath; Additional info: SOA TECHNIQUE: Imaging protocol: Radiologic exam of the chest. Views: 2 views. COMPARISON: CR XR CHEST 2V 04/24/2023 11:25 AM FINDINGS: Lungs: Unremarkable. No consolidation. Pleural spaces: Unremarkable. No pleural effusion. No pneumothorax. Heart/Mediastinum: Unremarkable. No cardiomegaly. Bones/joints: Unremarkable. IMPRESSION: No acute findings.
--- NOTE | 2024-01-04 16:30 | ED_ITS ---
Discharge Plan Disposition Patient Disposition: Home, Self-Care Condition: Good Prescriptions Prescriptions: New famotidine 40 mg tablet 40 mg PO HS 30 Days Qty: 30 2RF azithromycin [Zithromax] 250 mg tablet 250 mg PO UD DOSE PK Qty: 6 0RF Rx Instructions: Take two (2) tablets today, then one (1) tablet days #2 thru #5 Referrals Follow up/Referrals: Genevieve Pierce [Primary Care Provider] - See instructions Activity Restrictions/Add. Instructions Additional Instructions/Restrictions: Drink plenty of fluids. Take the medications as directed. Follow up with your regular doctor. GO TO THE ER FOR ANY WORSENING SYMPTOMS Clinical Impressions Clinical Impression: Bronchitis, Acid reflux Instructions Patient Instructions: DI for Gastroesophageal Reflux Disease (GERD), DI for Acute Bronchitis, Famotidine Print Language Print Language: Yoruba Discharge ED Provider: Torrey Vigil [facility] General Stated complaint: SOA,acid reflex occuring , chest discomfort in deonte Time Seen by Provider: 01/04/24 16:30 Related Data Previous Rx's ?Medication ?Instructions ?Recorded azithromycin 250 mg tablet 250 mg PO UD DOSE PK #6 tabs 01/04/24 (Zithromax) famotidine 40 mg tablet 40 mg PO HS 30 days #30 tabs 01/04/24 Allergies Allergy/AdvReac Type Severity Reaction Status Date / Time amoxicillin Allergy Unknown Verified 01/04/24 16:32 allergy reaction Sulfa (Sulfonamide Allergy Unknown Verified 01/04/24 16:32 Antibiotics) allergy reaction [facility] Disclaimer: The information contained in this section may have been updated after the patient was seen, as this information can be updated by other users. Medical History (Updated 01/04/24 @ 17:40 by Torrey Vigil APRN) Witnessed apneic spells Snoring ALISSA (obstructive sleep apnea) Syncope Social History Smoking Status: Current every day smoker tobacco type: cigarettes packs per day: 1 alcohol intake: never substance use type: denies use current occupational status: employed housing: house ROS Obtained: Yes All systems reviewed & no additional complaints except as documented Constitutional Constitutional: Reports poor appetite Eyes Eyes: Reports system reviewed and no additional complaints, except as documented ENT Ears, Nose, Mouth, and Throat: Reports as per HPI Cardiovascular Cardiovascular: Reports system reviewed and no additional complaints, except as documented and Denies chest pain Respiratory Respiratory: Denies shortness of breath, Reports chest congestion, Reports cough, Denies stridor and Denies wheezing Gastrointestinal Gastrointestingal: Reports system reviewed and no additional complaints, except as documented; Denies abdominal pain, diarrhea or vomiting Musculoskeletal Musculoskeletal: Reports system reviewed and no additional complaints, except as documented and Denies arthralgias Integumentary/Breasts Skin/Breast: Reports system reviewed and no additional complaints, except as documented and Denies rash Neurologic Neurologic: Denies paresthesias Allergic/Immunologic Allergic/Immunologic: Denies wheezing Physical Exam General General appearance: alert and in no apparent distress Eye Eye exam: Present normal appearance, PERRL and EOMI ENT ENT exam: Present mucous membranes moist and normal external ear exam Expanded ENT Exam External ear exam: Present normal external inspection TM/Canal exam: Bilateral TM: erythema and bulging Nose exam: Absent sinus tenderness Nasal speculum exam: Bilateral: normal Mouth exam: Present normal external inspection; Absent drooling Teeth exam: Present normal inspection Throat exam: Present tonsillar erythema and tonsillomegaly Neck Neck exam: Present normal inspection, full ROM and trachea midline; Absent tenderness, lymphadenopathy or thyromegaly Chest Chest inspection: Present normal inspection and symmetric chest wall rise; Absent tenderness or rash Respiratory Respiratory exam: Present normal lung sounds bilaterally; Absent respiratory distress, wheezes, stridor or accessory muscle use Cardiovascular Cardiovascular exam: Present regular rate, normal rhythm and normal heart sounds Abdominal Exam Abdominal exam: Present soft; Absent distention, tenderness, guarding, rebound or rigidity Extremities Exam Extremities exam: Present normal inspection, full ROM and normal capillary refill; Absent tenderness or calf tenderness Back Exam Back exam: Present normal inspection and full ROM; Absent tenderness Neurological Exam Neurological exam: Present alert and oriented X3 Psychiatric Psychiatric exam: Present normal affect and normal mood Skin Skin exam: Present warm, dry, intact and normal color Lymphatic Lymphatic Findings: no adenopathy Medical Decision Making Medical Records Medical records reviewed: No I reviewed the patient's medical records. Screening: Per USPSTF and CDC recommendations, given the prevalence of disease in our region, it is our hospital?s policy to screen for HIV and viral Hepatitis for al l patients aged 18 and over and those with ongoing risk factors. Dani Inquiry Pt receiving controlled substance: No Orders (Tests/Meds): ORDERS Category Date Time Status Chest XR 2 view (NOT portable) [XR chest 2V] Stat Exams 01/04/24 16:26 Ordered
[2024-01-04 17:40] VITALS: BP 112/64; PULSE 70; RESP 21; TEMP 36.7; O2SAT 99
== END 2024-01-04 17:42 | disposition home or self-care (01) ==
PROVIDERS: Emergency Provider Nurse Practitioner Family; PCP Nurse Practitioner Family
DX: J20.9 Acute bronchitis, unspecified (principal); K21.9 Gastro-esophageal reflux disease without esophagitis
CPT/HCPCS: 71046; 99213; G0381